=== PATIENT | male | born 1995 | race Caucasian/White ===

== ENCOUNTER 2020-11-16 17:51 | Emergency (ER) | payer OTHER, SELFPAY ==
[2020-11-16 17:56] VITALS: BP 133/79; PULSE 67; RESP 18; TEMP 36.1; O2SAT 100
--- NOTE | 2020-11-16 19:40 | ED.SKABFB ---
HPI - Skin/Abscess/Foreign Bdy General Chief complaint: Skin/Abscess/Foreign Body Stated complaint: insect bites Time Seen by Provider: 11/16/20 19:06 History of Present Illness HPI narrative: Healthy 25 yo male presents to the ED for a rash. He has noted small bumps to the arms, legs and waist line the past few days. New lesions appear in the morning and tend to fade throughout the day. He has seen what he believes to be bed bugs at work and now at his home. He has a picture of them and they do appear to be bed bugs. The lesions are pruritic and mildly painful. He has not tried anything to treat them. Related Data Home Medications Medication Instructions Recorded Confirmed No Home Medications 11/16/20 11/16/20 Allergies Allergy/AdvReac Type Severity Reaction Status Date / Time No Known Allergies Allergy Verified 11/16/20 19:52 Review of Systems Review of Systems: All systems reviewed & are unremarkable except as noted in HPI and below Constitutional: Constitutional: Denies chills, Denies fatigue, Denies fever(s) and Denies weakness Cardiovascular: Cardiovascular: Denies chest pain Respiratory: Respiratory: Denies dyspnea Neurologic: Denies headache(s), Denies numbness and Denies weakness PMFSH Social History Social History Gender identity (if verbalized by the patient): Male Exam Const: General: no acute distress and alert Orientation/consciousness: patient oriented x3 HENMT: Head: normal to inspection Neck: Neck: normal visual inspection Resp: Effort & Inspection: normal respiratory effort Skin: Other: multiple grouped erythematous papules on the right lower leg Neuro: General: patient oriented x3 and moves all extremities Speech: normal speech Extrem: General: normal to inspection Psych: Appearance: grossly normal and well kempt Mental Status: mental status grossly normal Affect: normal affect Course Vital Signs Vital signs: Vital Signs Temperature 36.1 C L 11/16/20 17:56 Pulse Rate 67 11/16/20 17:56 Respiratory Rate 18 11/16/20 17:56 Blood Pressure 133/79 11/16/20 17:56 Pulse Oximetry 100 11/16/20 17:56 Temperature 36.1 C L 11/16/20 17:56 Pulse Rate 67 11/16/20 17:56 Respiratory Rate 18 11/16/20 17:56 Blood Pressure 133/79 11/16/20 17:56 Pulse Oximetry 100 11/16/20 17:56 MDM - Skin/Abscess/Foreign Bdy MDM Narrative Medical decision making narrative: They appear to be bed bug bites. cannot completely rule out some similar type of reaction. Medical Records Attestation: I reviewed the patient's medical records. Discharge Plan Discharge Clinical Impression: Bed bug bite Patient Disposition: Home, Self-Care Condition: Stable Instructions: Bed Bugs (ED) Prescriptions: No Action No Home Medications RF: 0 Follow-up/Referrals: PHYSICIAN,WALLPAPER PRINTER HELPER [Primary Care Provider] - Phoenix Bran MD [Physician] -
[2020-11-16] MEDS: HYDROCORTISONE 1% 30 GM CREAM 1 APPLIC TOPICAL (21:10)
== END 2020-11-16 21:05 | disposition home or self-care (01) ==
PROVIDERS: Emergency Provider Emergency Medicine
DX: S80.861A Insect bite (nonvenomous), right lower leg, initial encounter (principal); W57.XXXA Bitten or stung by nonvenomous insect and other nonvenomous arthropods, initial encounter
CPT/HCPCS: 99283; A9270

== ENCOUNTER 2022-07-21 13:20 | Emergency (ER) | payer OTHER, SELFPAY ==
--- NOTE | ~2022-07-21 | CT_ITS ---
CT Facial Bones Clinical Indication: Trauma Technique: Contiguous axial scans were obtained through the facial bones followed by coronal and sagi ttal reconstructions. Dose reduction technique was used on this scan by utilizing automated exposure control and iterative reconstruction technique. The dose-length product (DLP) was 535.76 mGy-cm. Findings: Possible focal nondisplaced bilateral nasal bone fractures. No other fracture identified. R etention cyst or polyp are present at the floor the bilateral maxillary sinuses. The remaining visual ized paranasal sinuses are clear. Intraorbital soft tissues appear normal. Impression: Suspected focal nondisplaced bilateral nasal bone fractures. Reviewed, dictated and finalized at location M. Impression: Suspected focal nondisplaced bilateral nasal bone fractures.
[2022-07-21 13:22] VITALS: BP 145/77; PULSE 76; RESP 16; TEMP 36.7; O2SAT 98
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
== END 2022-07-21 16:30 | disposition home or self-care (01) ==
PROVIDERS: Emergency Provider Physician Assistant
DX: S02.2XXA Fracture of nasal bones, initial encounter for closed fracture (principal); W22.09XA Striking against other stationary object, initial encounter
CPT/HCPCS: 70486; 99284